=== PATIENT | male | born 1965 | race Caucasian/White ===

== ENCOUNTER 2024-03-19 21:39 | Emergency (ER) | payer OTHER ==
[~2024-03-19] VITALS: Ht 190.5 cm; Wt 112.0 kg
[2024-03-19] MEDS ORDERED: Acetaminophen 300 MG/Codeine 30 MG/COMBO PO ONE (22:10)
[2024-03-19] MEDS ORDERED: IBUPROFEN 800 MG/TAB PO ONE (22:10)
[2024-03-19 23:46] VITALS: BP 146/89
== END 2024-03-19 23:46 | disposition home or self-care (01) ==
LOC: ED 21:39
DX: S93.402A Sprain of unspecified ligament of left ankle, initial encounter (principal); S93.602A Unspecified sprain of left foot, initial encounter; I10 Essential (primary) hypertension; X50.0XXA Overexertion from strenuous movement or load, initial encounter